=== PATIENT | female | born 2000 | race African-American/Black ===

== ENCOUNTER 2021-07-31 17:09 | Emergency (ER) | payer MEDICAID ==
[~2021-07-31] VITALS: Ht 165.1 cm; Wt 66.0 kg
[2021-07-31 17:28] VITALS: BP 138/76
== END 2021-07-31 17:46 | disposition left against medical advice (07) ==
LOC: ER 17:09
DX: Z53.21 Procedure and treatment not carried out due to patient leaving prior to being seen by health care provider (principal); R56.9 Unspecified convulsions; Z98.890 Other specified postprocedural states